=== PATIENT | female | born 1970 | race Two or more races ===

== ENCOUNTER → 2024-05-29 | Outpatient (CLI) | payer MEDICAID, SELFPAY ==
--- NOTE | 2024-05-29 09:00 | XR_ITS ---
Examination: Esophagram standard Fluoroscopy 19 spot fluoroscopic films of the esophagus Upright PA chest Upright soft tissue lateral neck single view Exam date and time: May 29, 2024 0905 hours INDICATIONS: Throat infections hilar hernia repair 2012, difficulty swallowing TECHNIQUE AND FINDINGS: Upright PA chest single view demonstrates normal heart size no pneumonia Soft tissue lateral neck demonstrates moderate degenerative disc disease C5-C6 with anterior osteophyte formation normal epiglottis Patient swallowed thin barium with 19 spot films fluoroscopic of the esophagus Numerous secondary and tertiary esophageal contractions Moderate sliding esophageal hernia Moderate intermittent gastroesophageal reflux No stricture gastroesophageal junction IMPRESSION: Significant esophageal dysmotility Moderate sliding esophageal hernia Moderate intermittent gastroesophageal reflux
== END | disposition home or self-care (01) ==
LOC: CDIM 08:48
PROVIDERS: PCP Nurse Practitioner Family; Referring Provider Nurse Practitioner Family; Visit Provider Nurse Practitioner Family
DX: K21.9 Gastro-esophageal reflux disease without esophagitis (principal); K46.9 Unspecified abdominal hernia without obstruction or gangrene; K22.89 Other specified disease of esophagus
CPT/HCPCS: 74220

== ENCOUNTER → 2024-06-19 | Outpatient (CLI) | payer MEDICAID, SELFPAY ==
--- NOTE | 2024-06-19 14:11 | XR_ITS ---
Examination: Bilateral hands, 6 views. Technique: AP, Oblique, Lateral each hand total 6 views Date and time of exam: June 19, 2024 1459 hours INDICATIONS: Bilateral hand pain beginning one year ago Findings: Moderate osteopenia Old fracture deformity middle phalanx right fifth digit Bilateral mild diffuse narrowing joints of the wrists and hands No erosive arthritis No acute fractures or dislocations No opaque foreign bodies IMPRESSION: Mild diffuse narrowing joints of the wrists and hands No erosive arthritis
--- NOTE | 2024-06-19 14:12 | XR_ITS ---
Examination: Bilateral wrists 6 views TECHNIQUE: AP oblique lateral each wrist total 6 views Exam date and time: June 19, 2024 1505 hours INDICATIONS: Bilateral wrist pain years. FINDINGS: Significant osteopenia No fracture or dislocation involving either wrist Mild narrowing radiocarpal navicular trapezium first carpometacarpal joints No erosive arthritis IMPRESSION: Significant osteopenia Mild narrowing radiocarpal, navicular trapezium, first carpometacarpal joints No erosive arthritis
== END | disposition home or self-care (01) ==
PROVIDERS: PCP Physician Assistant; Referring Provider Nurse Practitioner Gerontology; Visit Provider Nurse Practitioner Gerontology
DX: M25.842 Other specified joint disorders, left hand (principal); M25.841 Other specified joint disorders, right hand; M85.89 Other specified disorders of bone density and structure, multiple sites; M25.832 Other specified joint disorders, left wrist; M25.831 Other specified joint disorders, right wrist
CPT/HCPCS: 73110; 73130

== ENCOUNTER → 2024-07-25 | Outpatient (CLI) | payer MEDICAID, SELFPAY ==
--- NOTE | 2024-07-25 13:30 | XR_ITS ---
Examination: Breast ultrasound complete, bilateral Date and time of exam: July 25, 2024 1336 hours INDICATIONS: Bilateral breast pain beginning one year ago, family history breast cancer Technique: Real-time grayscale ultrasonographic imaging bilateral breasts, including all 4 quadrants as well as nipple retroareolar and axillary regions. Findings: Sonographic images right breast 10:00 cyst 4 x 4 millimeter 10:00 cyst 5 x 6 mm 11:00 cyst 5 x 6 mm No solid nodules Sonographic images left breast No cystic or solid mass IMPRESSION: BI-RADS Category 2: Benign findings
--- NOTE | 2024-07-25 14:30 | XR_ITS ---
Examination: Diagnostic digital mammography, bilateral Computer aided detection 3-D breast Tomosynthesis, bilateral Date and time of exam: July 25, 2024 1403 hours Compared to mammograms dating to December 09, 2019 INDICATION: Patient states bilateral breast pain one year Technique: Nonmagnified MLO, CC views of the breasts to been obtained, reconstructed from 3-D Tomosynthesis images. R2 computer aided detection program utilized for evaluation of suspicious masses and/or abnormal calcifications. 3-D Tomosynthesis images obtained. Findings: Scattered areas of fibroglandular density Stable focal asymmetry outer right breast No interval suspicious masses Impression: BI-RADS Category 2: Benign findings Return to yearly follow-up mammography.
== END | disposition home or self-care (01) ==
PROVIDERS: PCP Physician Assistant; Referring Provider Obstetrics & Gynecology; Visit Provider Obstetrics & Gynecology
DX: R92.323 Mammographic fibroglandular density, bilateral breasts (principal); N60.01 Solitary cyst of right breast; Z80.3 Family history of malignant neoplasm of breast
CPT/HCPCS: 76641; 77062; 77066; G0279

== ENCOUNTER 2024-12-20 14:39 | Emergency (ER) | payer MEDICAID, SELFPAY ==
[2024-12-20 15:06] VITALS: BP 150/70; PULSE 66; RESP 20; TEMP 37.2; O2SAT 99
--- NOTE | 2024-12-20 15:08 | EKG_ITS ---
[facility] Test Date: 2024-12-20 Pat Name: JAVIER Ganpartment: Room: - Gender: Female [employer]: : 1970 Requested By: Dayanna Guadalupe Order Number: [id number] Reading MD: Dayanna Guadalupe Measurements Intervals [place] Rate: 68 P: 10 MN: 145 QRS: -40 QRSD: 93 T: -10 QT: 402 QTc: 430 Interpretive Statements SINUS RHYTHM LEFT AXIS DEVIATION [QRS AXIS < -30] PATTERN CONSISTENT WITH PULMONARY DISEASE Compared to ECG 10/16/2021 22:06:41 No significant changes /store/S0/[id number].pdf
--- NOTE | 2024-12-20 15:08 | XR_ITS ---
Examination: PA chest single view TECHNIQUE: Upright PA chest single view Date and time: December 20, 2024 1525 hours Comparison October 16, 2021 INDICATIONS: Shortness of breath today. FINDINGS: Normal heart size Lungs are clear. The osseous structures are intact IMPRESSION: No active disease
--- NOTE | 2024-12-20 15:09 | PD.EDRME ---
Rapid Medical Screening Exam RME Arrival date/time: 12/20/24 14:39 This is a case of a 54-year-old female who came into the emergency room due to shortness of breath chest pain for 2 days associated with palpitation worsening of the symptoms this patient decided to start consult here in the emergency room patient also having headache Chief Complaint: Shortness of Breath/Dyspnea Time Seen by Provider: 12/20/24 15:04 Vital signs: Vital Signs Temperature 99.0 F 12/20/24 15:06 Pulse Rate 66 12/20/24 15:06 Respiratory Rate 20 12/20/24 15:06 Blood Pressure 150/70 H 12/20/24 15:06 Pulse Oximetry (%) 99 12/20/24 15:06 Oxygen Delivery Method Room Air 12/20/24 15:06
[2024-12-20 15:42] LABS: Basophils % (Auto) 0 % (0-2.5); Eosinophils % (Auto) 1 % (0-10); Hematocrit 37.7 % (36.0-46.0); Immature Granulocytes % (Auto) 0 % (0-0); Immature Granulocytes Auto 0.02 Thou/mm3 (0.00-0.00); Lymphocytes # (Auto) 2.2 Thou/mm3 (1.0-4.8); Lymphocytes % (Auto) 36 % (10-50); Mean Corpuscular HGB Conc 34.5 g/dl (31.0-37.0); Mean Corpuscular Hemoglobin 29.1 pg (25.0-35.0); Mean Corpuscular Volume 84 fL (80-100); Monocytes # (Auto) 0.6 Thou/mm3 (0.0-0.8); Monocytes % (Auto) 10 % (0-12); Neutrophils # (Auto) 3.1 Thou/mm3 (1.8-7.7); Neutrophils % (Auto) 52 % (37-80); Nucleated Red Blood Cell % 0 /100 WBC (0); Platelet Count 361 Thou/mm3 (140-440); Red Blood Count 4.47 Miln/mm3 (4.00-5.20)
[2024-12-20 16:01] LABS: B-Type Natriuretic Peptide 84 pg/mL (0-100)
[2024-12-20 16:02] LABS: D-Dimer < 250 ng/mL (<600)
[2024-12-20 16:05] LABS: Alanine Aminotransferase 21 U/L (10-49); Albumin, Serum 4.5 gm/dL (3.5-5.0); Albumin/Globulin Ratio 1.7 (1.2-2.2); Alkaline Phosphatase 93 U/L (46-116); Anion Gap 10 (7-16); Aspartate Amino Transferase 20 U/L (0-34); BUN/Creatinine Ratio 15 Ratio (12-20); Bilirubin,Total 0.8 mg/dL (0.3-1.2); Blood Urea Nitrogen 9 mg/dL (9-23); Calcium 8.7 mg/dL (8.3-10.6); Calcium (Corrected) 8.7 mg/dL (8.5-10.1); Chloride 107 mMol/L (98-107); Creatinine (Component) 0.6 mg/dL (0.6-1.3); Globulin 2.6 gm/dL (2.3-3.5); Glucose 86 mg/dL (74-106); Osmolality,Calculated 284 (275-295); Sodium 144 mMol/L (136-145); Total Protein 7.1 gm/dL (5.7-8.2); Troponin I < 0.002 ng/mL (0.0-0.045); eGFR > 60 See Note
[2024-12-20 19:30] VITALS: BP 173/97; PULSE 68; RESP 18; TEMP 36.7; O2SAT 98
--- NOTE | 2024-12-20 19:58 | EDNOTE_ITS ---
<Statement entered by Eileen Bradshaw MD - 12/21/24 03:41> As co-signing physician, I was present and available for consult prn. I concur with the plan and care as documented by the midlevel provider. ED SOB =RME/HPI General Chief Complaint: Shortness of Breath/Dyspnea Stated Complaint: SOB since last night, SOSA and chest pressure Time Seen by Provider: 12/20/24 15:04 Arrival date/time: 12/20/24 14:39 RME / HPI RME / HPI Narrative: 54-year-old female who came into the emergency room due to shortness of breath chest pain for 2 days associated with palpitation worsening of the symptoms this patient decided to start consult here in the emergency room patient also having headache. Headache is described as dull ache, severity moderate. Denies any slurring of speech denies any upper or lower extremity weakness patient is ambulatory denies any fever denies any head injury or trauma. Related Data Home Medications ?Medication ?Instructions ?Recorded ?Confirmed omeprazole 40 mg capsule,delayed 40 mg PO QDAY 2 10/16/21 release gabapentin 300 mg tablet 300 mg PO BID 01/26/2401/25 Previous Rx's ?Medication ?Instructions ?Recorded gabapentin 300 mg capsule 300 mg PO Q8H #30 caps 01/25 hydroxyzine HCl 50 mg tablet 50 mg PO BID PRN anxiety #20 tabs 12/20/24 ibuprofen 600 mg tablet 600 mg PO Q8H PRN pain #30 t abs 12/20/24 Allergies Allergy/AdvReac Type Severity Reaction Status Date / Time No Known Allergies Allergy Verified 12/20/24 14:45 Review of Systems Review of Systems Narrative Review of Systems: Review of system reviewed and within normal limits except mentioned in HPI ED Exam Narrative Physical exam: VITAL SIGNS: Reviewed. GENERAL APPEARANCE: Alert and interactive, follows commands, no acute distress, HEAD AND FACE: Non-traumatic. ENT: PERRL, pink conjunctivitis, eyelid no trauma, Mucous membrane moist. NECK: Supple, nontender, no nuchal rigidity. CHEST: No tenderness, no crepitus, no paradoxical movement, no retractions. LUNGS: Clear, well ventilated, symmetric, no rales, no wheezing, no ronchi, no stridor, good breath sounds bilaterally. HEART: Regular rate, regular rhythm, no murmur, no gallops. ABDOMEN: Soft, positive bowel sounds, nondistended, no guarding, nontender, no rebound, no masses, RECTAL: Deferred. GENITAL: Deferred. NEUROLOGICAL: Gross motor function intact sensory function intact, Appropriate for age. MUSCULOSKELETAL: low back nontender, full range of motion. EXTREMITIES: Nontender, full range of motion. SKIN: Color pink, dry, no rash, no lacerations, no abrasions, no contusions. LYMPHATICS: Deferred. Course Quality Measures none Orders Category Date Time Status EKG (ED ONLY) *Do not use* NOW Care 12/20/24 15:09 Completed EKG (ED Only) Stat Exams 12/20/24 15:08 Draft XR chest 1V Stat Exams 12/20/24 15:08 Completed BNP [B-Type Natriuretic Peptide] Stat Lab 12/20/24 15:20 Completed CBC Stat Lab 12/20/24 15:20 Completed CMP [Comprehensive Metabolic Panel] Stat Lab 12/20/24 15:20 Completed D-Dimer Stat Lab 12/20/24 15:20 Completed Troponin I Stat Lab 12/20/24 15:20 Completed Ketorolac Inj [Toradol Inj] Med 12/20/24 19:57 Discontinued 30 mg IM X1 ONE Vital Signs Vital signs: Vital Signs Temperature 99.0 F 12/20/24 15:06 Pulse Rate 66 12/20/24 15:06 Respiratory Rate 20 12/20/24 15:06 Blood Pressure 150/70 H 12/20/24 15:06 Pulse Oximetry (%) 99 12/20/24 15:06 Oxygen Delivery Method Room Air 12/20/24 15:06 Shortness of Breath / Dyspnea MDM Narrative MDM Narrative:: 54-year-old female who came into the emergency room due to shortness of breath chest pain for 2 days associated with palpitation worsening of the symptoms this patient decided to start consult here in the emergency room patient also having headache. Headache is described as dull ache, severity moderate. Denies any slurring of speech denies any upper or lower extremity weakness patient is ambulatory denies any fever denies any head injury or trauma. Patient's work up all came back unremarkable., D-dimer is normal. CMP unremarkable. I personally reviewed and interpreted the x-ray of this patient. There is no acute abnormalities found, no infiltrates no pneumothorax no hemothorax normal chest x-ray. Review of other structures was without significant abnormal findings also. I additionally reviewed the radiologist report and agree with the interpretation. EKG is as reported by me showed normal sinus rhythm, ventricular rate of 68 bpm, no ST segment elevation or depression noted. Patient was given Toradol IM significant improvement of headache. Patient is ambulatory. Patient data External records reviewed:: None Clinical information provided by:: patient and family Social determinants that could affect healthcare access:: none Patient has the following chronic illnesses:: Hypertension How is presenting disease/condition affected by chronic disease/condition?: exacerbated by Evaluation data The following diagnostics were reviewed and interpreted by me:: lab results, radiology exam(s) and EKG tracing(s) Lab and/or radiology exams considered but not ordered:: None Interpretation Summary: See results MDM Medications / Prescriptions Medications or Prescriptions considered but not ordered:: None Medication administrations:: Medication Administration History Discontinued Medications Ketorolac Tromethamine (Ketorolac Inj 60 Mg/2 Ml Vial) 30 mg IM X1 ONE Stop: 12/20/24 19:58 Toradol IM Consultations Consultation(s) initiated? (list below): No Diagnosis Shortness of Breath Differential Diagnosis: other (Headache, anxiety, chest pain) Most likely diagnosis given after review of the tests above:: Headache, anxiety Admission Indicated Admission indicated?: not indicated Admission Request Was there a request for admission?: No Disposition Plan Disposition Plan: Discharge Discharge Attestation Discharge Attestation: The patient and all family members were given an opportunity to ask questions and understood the discharge instructions. Discharge instructions specifically effects, indications for sooner follow up or return to the emergency department, and the expected course of current diagnosis. Patient condition: Stable Discharge Plan Plan Patient Disposition: HOME (Self Care) Discharge Disposition comment: Stable Prescriptions/Referrals Prescriptions/Med Rec: New hydroxyzine HCl 50 mg tablet 50 mg PO BID PRN (Reason: anxiety) Qty: 20 0RF ibuprofen 600 mg tablet 600 mg PO Q8H PRN (Reason: pain) Qty: 30 0RF No Action omeprazole 40 mg Capsule,Delayed Release(Dr/Ec) 40 mg PO QDAY gabapentin 300 mg Tablet 300 mg PO BID gabapentin 300 mg capsule 300 mg PO Q8H Qty: 30 0RF Referrals: Michael Albarado PA-C [Primary Care Provider] - In 1 week Problem List Clinical Impression: Headache, Anxiety Patient/Caregiver Discharge Instructions Discharge Activity: activity as tolerated Education Materials: Your Body's Response to Anxiety Additional Instructions: Thank you for the opportunity for serving you today. You are stable for discharged . You are advised to: Follow-up with your PCP in 1 to 2 days Return to ED for worsening of symptoms Increase oral fluids Take medication as prescribed Print Language: American Stand Alone Forms: Ana Award Info., Patient Portal Info Letter
[2024-12-20] MEDS: KETOROLAC INJ 60 MG/2 ML VIAL 30 MG IM (20:29)
== END 2024-12-20 20:50 | disposition home or self-care (01) ==
PROVIDERS: Nurse Practitioner Family; Emergency Provider Emergency Medicine; PCP Physician Assistant
DX: F41.9 Anxiety disorder, unspecified (principal); R51.9 Headache, unspecified; R94.31 Abnormal electrocardiogram [ECG] [EKG]; I10 Essential (primary) hypertension
CPT/HCPCS: 36415; 71045; 80053; 83880; 84484; 85025; 85379; 93005; 96372; 99283; J1885